=== PATIENT | female | born 2000 | race Caucasian/White ===

== ENCOUNTER 2020-08-06 21:00 | Emergency (ER) | payer MEDICAID, SELFPAY ==
[2020-08-06 21:01] VITALS: BP 169/90; PULSE 98; RESP 18; TEMP 36.4; O2SAT 97; BMI 43.9
--- NOTE | 2020-08-06 21:42 | ED.VIS.GEN ---
History of Present Illness Chief Complaint: Dental Informant: Patient Onset: Yesterday Narrative: Worsening dental pain since yesterday after seeing the dentist. States had a dental cap placed a month ago by the dentist. She states was having hot and cold sensitive increasing pain the same tooth for the past week. States the dentist yesterday states it may have been placed too large and was grinding it without any analgesia. She states pain has been worsening since. She was told to monitor till Sunday and call back. She has been using ibuprofen she states taking 4200 mg in the past day. Denies abdominal pain. Prior similar symptoms: Yes Past Medical History - Allergies and Home Meds Allergies/Adverse Reactions: Allergies citric acid Allergy (Verified 08/06/20 21:03) Rash Primary Care Physician: Care Physician,No Primary [Primary Care Provider] - Past Medical History: None Review of Systems General: Denies: Chills, Fever, Sweats Eyes: Denies: Visual changes - bilaterally, Diplopia ENT: Reports: - - Dental pain. Denies: Rhinorrhea, Sore throat Cardiovascular: Denies: Chest pain, Palpitations Respiratory: Denies: Dyspnea, Cough, Dyspnea on exertion Gastrointestinal: Denies: Abdominal pain, Nausea, Vomiting, Diarrhea, Melena, Hematochezia Genitourinary: Denies: Dysuria, Hematuria, Frequency Musculoskeletal: Denies: Back pain, Extremity Pain Skin: Denies: Rash, Wounds Neurological: Denies: Headache, Weakness, Numbness Physical Exam Vital Signs/Narrative: Vital Signs Temp Pulse Resp BP Pulse Ox 08/06/20 21:01 97.6 F L 98 18 169/90 H 97 Inital Vital Signs reviewed: Yes General: Well nourished, Well developed, No Acute Distress Head: Normocephalic, Atraumatic Eyes: Perrl, EOMI ENT: Moist mucous membranes, No rhinorrhea, - - Tender to percussion tooth #14, no focal gum swelling. There is slight swelling soft palate left side. No drainage. Neck: Supple, Nontender Cardiovascular: Regular rate, Regular rhythm, No murmurs Respiratory: No distress, CTA bilaterally, Chest nontender Abdomen: Soft, Nontender, Nondistended, Normal bowel sounds Back: Nontender, Normal Inspection Extremities: Nontender, No edema Skin: Normal color, No rash Neurological: Alert, Oriented x3, Cranial nerves II-XII grossly intact, Normal Strength, Normal Sensation Psychological: Normal affect, Normal Mood Diagnostic/Tx/Re-eval - Medical Decision Making Patient vital signs stable nontoxic. With hot cold consider increasing pain discussed coverage with antibiotics for infection coverage. Discussed appropriate use of NSAIDs. OARRS report evaluated and negative. Short course of [place] and started on clindamycin due to citric acid allergy in potentially being in penicillin. Follow-up with her dentist for definitive care on Sunday. ED Disposition - Plan for ED Patient: Disposition: Home or Assisted Living Diagnosis: Dentalgia Instructions: ED Dental Pain Prescriptions: Clindamycin [Cleocin] 300 mg PO 4X/DAY #80 capsule Hydrocodone Bitart/Apap 5-325 [[place] 5MG-325MG] 1 tablet PO Q6H PRN PRN 3 Days #10 tablet PRN Reason: Pain Referrals: Care Physician,No Primary [Primary Care Provider] - Additional Instructions: Follow up with your dentist
[2020-08-06 22:11] VITALS: BP 169/90; PULSE 98; RESP 18; TEMP 36.4; O2SAT 97
== END 2020-08-06 22:13 | disposition home or self-care (01) ==
PROVIDERS: Emergency Provider Emergency Medicine
DX: K08.89 Other specified disorders of teeth and supporting structures (principal)
CPT/HCPCS: 99283